=== PATIENT | female | born 1985 | race Caucasian/White ===

== ENCOUNTER 2016-12-23 12:55 | Emergency (ER) | payer OTHER ==
[~2016-12-23] VITALS: Ht 167.6 cm; Wt 63.5 kg
--- NOTE | 2016-12-23 13:18 | ED NECK/BACK PAIN COMPLAINT ---
History of Present Illness General Chief Complaint: Low Back Pain/Injury Stated Complaint: LOWER BACK PAIN, RADIATES RIGHT LEG, WORK RELATED Source: patient, old records Exam Limitations: no limitations Vital Signs & Intake/Output Vital Signs & Intake/Output Vital Signs Date Time Temp Pulse Resp B/P B/P Pulse O2 O2 Flow FiO2 Mean Ox Delivery Rate 12/23 1259 98.4 91 16 129/88 99 Room Air Allergies Coded Allergies: No Known Allergies (12/23/16) Reconcile Medications Methocarbamol 500 MG TABLET 1 TAB PO QPM PRN MUSCLE (Reported) Methylprednisolone. (Medrol) 4 MG TAB.DS.PK 1 DP PO AD lumbar radiculopathy 6 on day 1 then reduce by one tablet daily until gone Triage Note: 31 Y/O FEMALE C/O LOW BACK PAIN RADIATING INTO R BUTTOCK AND R THIGH. STATES SHE WAS REACHING TO CATCH A DIALYSIS MACHINE BEFORE IT FELL OVER ON December AND HAS HAD PAIN SINCE. WAS EVAL'D AT [facility] AND REFERRED TO ED FOR IMAGING. WORKMANS COMP COMPLETED IN TRIAGE. Triage Nurses Notes Reviewed? yes Onset: Gradual Duration: day(s): (13), constant, waxing and waning Timing: recent history Quality/Severity: mild, moderate (ACHING) Location: paraspinous muscles Radiation: buttocks Context: TWISTED Loss of Consciousness: no loss of consciousness Modifying Factors: movement, pain medication, rest Associated Symptoms: DENIES : No Patient currently breastfeeds: No HPI: 31-year-old female presents to ER with no medical history complaining of right- sided lower back pain radiates to her right buttocks and right thigh for the past 13 days. She states symptoms came on her she twisted her back while attempting to reach and catch a dialysis machine before it fell. The patient herself did not fall. She states Pain since she went to an urgent care as prescribed and he must relaxer and Tylenol Motrin with only mild improvement. No abdominal pain nausea vomiting no urinary or bowel incontinence no dysuria or urgency. Pain is worse with palpation and change in position No other modifying factors or associated symptoms. (FRANCISCO REYNA,KATHY) Past History Travel History Traveled to [place] past 21 day No Medical History Any Pertinent Medical History? 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 No (KATHY CHING) Review of Systems Review of Systems Constitutional: Reports: see HPI. All Other Systems: Reviewed and Negative Comments Review of systems: See HPI, All other systems negative. Constitutional, no chills no fever, no malaise HEENT: no sore throat no congestion, Cardiovascular: No chest pain , no palpitation SKIN: No rash Respiratory: No dyspnea no cough no sputum GI: No nausea no vomiting, no diarrhea : No dysuria No hematuria, no frequency, no discharge Muscle skeletal: No joint pain, no joint swelling, back pain, no neck pain, Neurologic: No numbness no headache Psych: No stress Heme/endocrine: No bruising Immunology: No lymphadenopathy (KATHY CHING) Physical Exam Physical Exam General Appearance: well developed/nourished, no apparent distress, alert, awake Neck: normal inspection, supple, full range of motion Comments: Well-developed well-nourished patient in no apparent distress. HEENT: Atraumatic, extraocular motion intact Neck: Supple, FROM Back: FROM no midline tenderness right sided paralumbar muscle tenderness palpation no ecchymosis no CVA tenderness Cardiovascular: Regular rate and rhythms no murmurs rubs or gallops, Respiratory: Chest nontender.There were no bony deformities, no asymmetry. No respiratory distress. Patient speaking in full complete sentences. Breath sounds clear to auscultation bilaterally: NO W/R/R Extremities: full range of motion 5 out of 5 strength to bilateral lower extremities positive straight leg raise to the right lower extremity Neuro: awake, alert, and oriented to person, place and time. There were no obvious focal neurologic abnormalities. Skin: Warm & dry;No appreciable rash on exposed skin Psych: Mood affect normal, normal memory normal judgment. (KATHY CHING) Progress Differential Diagnosis: cauda equina syn, herniated disc, myofascial strain, pyelo/UTI, sciatica, spinal cord inj Plan of Care: Orders Procedure Date/time Status URINE 12/23 1326 Complete Laboratory Tests 12/23/16 1336: Urine Test NEGATIVE Patient clinically looks well. Patient has no evidence of radiculopathy. No urinary bowel dysfunction. No numbness in the genital area. Strength intact. Gross sensation intact. Patient resting comfortably and in no apparent distress. Pain is worse with range of motion. Pain is reproducible IN back with no bruising or ecchymosis noted. . Patient is to follow-up with primary care doctor. May need MRI of the lower back at some point time. No concerns for cauda equina at this point time. I considered this diagnosis but patient does not have any symptoms consistent with cauda equina. Patient has no secondary causes of back pain. No cardiac, pulmonary, or abdominal complaints. No abdominal pain on exam. Cardiac pulmonary exam within normal limits. No rashes, afebrile, denies recent weight loss, dizziness, lightheadedness (FRANCISCO REYNA,KATHY) Diagnostic Imaging: Viewed by Me: Radiology Read. Discussed w/RAD: Radiology Read. Radiology Impression: PATIENT: JOSEE MCLAUGHLIN PRESENT AGE: 31 PATIENT ACCOUNT NO: [id number] : 86 LOCATION: [facility] ([place]) ORDERING PHYSICIAN: KATHY REYNA SERVICE DATE: 12/23/16 EXAM TYPE: RAD - XRY-LUMBOSACRAL SPINE AP & LAT EXAMINATION: XR LUMBOSACRAL SPINE CLINICAL INFORMATION: Right-sided lower back pain after lifting COMPARISON: None TECHNIQUE: AP and lateral views of the lumbosacral spine were obtained. FINDINGS : There are diminutive ribs on T12, below which there are 5 nonrib-bearing lumbar type vertebral bodies. Vertebral body height is maintained. Sagittal alignment is maintained. Intervertebral disc height is maintained. No evidence of spondylolysis or scoliosis. No significant degenerative changes. The SI joints are unremarkable. The bowel gas pattern is nonobstructive. Few phleboliths are visualized in the pelvis. IMPRESSION: Unremarkable radiographic appearance of the lumbar spine. DICTATED BY: EDUARDO FERNANDES MD DATE/TIME DICTATED :12/23/161449 BOAT DRIVER:LENNY DATE/TIME TRANSCRIBED:12/23/161449 CONFIDENTIAL, DO NOT COPY WITHOUT APPROPRIATE AUTHORIZATION. < Electronically signed in Other Vendor System> SIGNED BY: EDUARDO FERNANDES MD 12/23/16 0049 (KATHY CHING) Departure Departure Disposition: HOME OR SELF CARE Condition: Stable Clinical Impression Primary Impression: Lumbar radiculopathy Referrals: PATIENT HAS NO PRIMARY CARE DR (PCP/Family) Additional Instructions: medrol dose cecily as directed. tylenol or mtorin every 4-6 hours. interchangce ice and heat. follow up with your occupational health. 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 (Medrol) 1 DP PO AD #1 DP 6 on day 1 then reduce by one tablet daily until gone (KATHY CHING) PA/TIMBER WATCHMAN Co-Sign Statement Statement: ED Attending supervision documentation- [] I saw and evaluated the patient. I have also reviewed all the pertinent lab results and diagnostic results. I agree with the findings and the plan of care as documented in the PA's/TIMBER WATCHMAN's documentation. [x] I have reviewed the ED Record and agree with the PA's/TIMBER WATCHMAN's documentation. [] Additions or exceptions (if any) to the PAs/TIMBER WATCHMAN's note and plan are summarized below: [] (GALI ESPINOSA DO
[2016-12-23] MEDS ORDERED: METHOCARBAMOL500 M1 PO (14:22)
[2016-12-23] MEDS ORDERED: MEDROL4 M2 PO (14:53)
--- NOTE | 2016-12-23 14:55 | RADIOLOGY REPORT ---
EXAMINATION: XR LUMBOSACRAL SPINE CLINICAL INFORMATION: Right-sided lower back pain after lifting COMPARISON: None TECHNIQUE: AP and lateral views of the lumbosacral spine were obtained. FINDINGS: There are diminutive ribs on T12, below which there are 5 nonrib-bearing lumbar type vertebral bodies. Vertebral body height is maintained. Sagittal alignment is maintained. Intervertebral disc height is maintained. No evidence of spondylolysis or scoliosis. No significant degenerative changes. The SI joints are unremarkable. The bowel gas pattern is nonobstructive. Few phleboliths are visualized in the pelvis. IMPRESSION: Unremarkable radiographic appearance of the lumbar spine.
== END 2016-12-23 15:07 ==
LOC: ERH 12:55
DX: M54.16 Radiculopathy, lumbar region (principal)
CPT/HCPCS: 72100; 81025